=== PATIENT | female | born 1975 | race Caucasian/White ===

== ENCOUNTER 2018-04-20 05:30 | Inpatient (IN) | payer BC ==
[~2018-04-20] VITALS: Ht 165.1 cm; Wt 98.4 kg
[2018-04-20] MEDS ORDERED: IRON1TAB95 PO (06:39)
[2018-04-20] MEDS ORDERED: ONDANSETRON HCL 4 MG/2 ML VIAL IVP PRN ×2 (08:15→11:30)
[2018-04-20] MEDS ORDERED: fentaNYL CITRATE/PF 100 MCG/2 ML AMP IVP PRN ×2 (08:15)
[2018-04-20] MEDS ORDERED: KETOROLAC TROMETHAMINE 30 MG VIAL IVP PRN ×2 (08:15→10:30)
[2018-04-20] MEDS ORDERED: TEMAZEPAM 15 MG CAPSULE PO PRN (10:30)
[2018-04-20] MEDS ORDERED: BISACODYL 10 MG/SUPPOSITORY RC PRN (10:30)
[2018-04-20] MEDS ORDERED: CEFAZOLIN 2 GM IVPB PREMIX 50 ML IV ONE (10:40)
[2018-04-20] MEDS ORDERED: MIDAZOLAM HCL 5 MG/5 ML VIAL IVP ONE (10:40)
[2018-04-20] MEDS ORDERED: KETOROLAC TROMETHAMINE 30 MG VIAL IVP ONE (10:40)
[2018-04-20] MEDS ORDERED: BUPIVACAINE /PF 0.25% 30 ML VIAL INJ ONE (10:40)
[2018-04-20] MEDS ORDERED: ONDANSETRON HCL 4 MG/2 ML VIAL IVP ONE (10:40)
[2018-04-20] MEDS ORDERED: NS 1000 ML IV.SOLN IV ONE (10:40)
[2018-04-20] MEDS ORDERED: LIDOCAINE 2%, 20 ML MDV INJ ONE (10:40)
[2018-04-20] MEDS ORDERED: BUPIVACAINE /PF 0.5% 30 ML VIAL INJ ONE (10:40)
[2018-04-20] MEDS ORDERED: PROPOFOL 200MG/ 20ML VIAL (DIPRIVAN) IV ONE (10:40)
[2018-04-20] MEDS ORDERED: ROCURONIUM BROMIDE 10 MG/ML (ZEMURON) IV ONE (10:40)
[2018-04-20] MEDS ORDERED: ROPIVACAINE 0.2% (NAROPIN) PF SOLUTION 100 ML BOTTLE EP ONE (10:40)
[2018-04-20] MEDS ORDERED: SEVOFLURANE 15 MIN GAS INH ONE (10:40)
[2018-04-20] MEDS ORDERED: fentaNYL CITRATE 250 MCG/5 ML AMP IV ONE (10:40)
[2018-04-20] MEDS ORDERED: LR 1,000 ML IV.SOLN IV ONE (10:40)
[2018-04-20] MEDS ORDERED: fentaNYL CITRATE/PF 100 MCG/2 ML AMP ONE (10:54)
[2018-04-20] MEDS ORDERED: ONDANSETRON HCL 4 MG/2 ML VIAL ONE (10:54)
[2018-04-20] MEDS ORDERED: SENNOSIDES/DOCUSATE SODIUM 1 TAB TABLET(SENOKOT-S) PO PRN (11:15)
[2018-04-20] MEDS ORDERED: DOCUSATE SODIUM 100 MG CAPSULE PO PRN (11:15)
[2018-04-20] MEDS ORDERED: PROMETHAZINE HCL 25 MG/ML AMP ONE (11:40)
[2018-04-20] MEDS ORDERED: PROMETHAZINE HCL 25 MG/ML AMP IM ONE (11:45)
--- NOTE | 2018-04-20 11:45 | NUR ---
initial notes rec patient from rr s.p ela asleep but arousable to stimuli with hob elevated.ivf infusing well on the l wrist. no infiltration noted. resp easy and unlabored. noted with lower abd dressing and no bleeding noted. kennedy cath intact and draining to mod amount of yellow urine. accompanied by family at bedside. oriented with the call light, communication board and the call light. will continue to mo itor patient.
[2018-04-20 12:28] VITALS: BP_SYST 148
[2018-04-20 13:46] VITALS: BP_SYST 148
--- NOTE | 2018-04-20 13:51 | NUR ---
rounds dr hooks was called for patient c/o pain and with order.
--- NOTE | 2018-04-20 14:00 | NUR ---
rounds pt continue to have pain and dr hooks was called and with order. family at bedside.
[2018-04-20] MEDS: MEPERIDINE HCL/PF 50 MG/ML AMP IVP PRN ×2 (14:15→17:55)
--- NOTE | 2018-04-20 17:00 | NUR ---
rounds pt is asleep at this time. hob slightly elevated, call light within reached.
[2018-04-20] MEDS: SIMETHICONE 80 MG TAB.CHEW PO PRN (17:47)
[2018-04-20 17:54] VITALS: BP_SYST 161
[2018-04-20] MEDS: LR 1,000 ML IV SCH ×2 (18:01→19:15)
--- NOTE | 2018-04-20 19:00 | NUR ---
closing notes report given to lithuanian re patient and dr acharya anesthesiologist at bedside. reported re elevated bp 157/95 at this time. he ordered iuss master analyst morphine and endorsed to lithuanian night nurse rn. with daughter at bedside. no sob noted. dressing dry and intact with ice pack in place. call light within reached and knows to call for assistance.
[2018-04-20] MEDS ORDERED: MORPHINE PCA 50 mg/50 mL NS 50 ML IV PRN (19:30)
--- NOTE | 2018-04-20 19:30 | NUR ---
Initial Notes Received patient resting in bed, awake, alert, oriented, family at bedside. Patient denies any acute distress. Vital signs stable. Breathing is even and unlabored. IV site patent/clean/dry. Sommer draining to gravity. Surgical dressing noted lower abdomen, clean/dry/intact. On-Q pump noted, catheter in place. Educated patient regarding use of call light for assistance and fall precautions, patient verbalized understanding. Call light in hand, fall precautions in place. Dr. Alonso in to see patient. On-Q pump setting changed by , now at 10. WAREHOUSE SHIFT SUPERVISOR orders received, will carry out once medication received.
[2018-04-20 20:00] VITALS: BP_SYST 157
[2018-04-20] MEDS: MORPHINE PCA 50 mg/50 mL NS 50 ML IV PRN (20:24)
--- NOTE | 2018-04-20 20:30 | NUR ---
HOSPITAL LIAISON Initiated HOSPITAL LIAISON orders initiated, verified and witnessed by Sima HUFF. Instructed patient regarding increase risk of falls and instructed patient to use call light for assistance, patient verbalized understanding. IV site patent/clean/dry, no S/S infection/infiltration noted. Abdominal binder applied per MD order, patient tolerating well. Ice pack applied to abdomen.
--- NOTE | 2018-04-20 22:00 | NUR ---
Nursing Notes Patient resting in bed with eyes closed, easily aroused, family at bedside. Patient denies any acute distress at this time. Breathing is even and unlabored. IV site patent/clean/dry. Sommer draining to gravity. Patient noted pain relieve with LUGGER. Needs addressed. Call light in hand, fall precautions in place.
[2018-04-21 00:36] VITALS: BP_SYST 154
--- NOTE | 2018-04-21 00:39 | NUR ---
Nursing Notes Patient resting in bed with eyes closed, family at bedside. No acute distress noted, breathing is even and unlabored. IV site patent/clean/dry. Sommer draining to gravity. Call light in hand, fall precautions in place. Will continue to monitor.
[2018-04-21] MEDS: LR 1,000 ML IV SCH ×2 (01:45→11:53)
--- NOTE | 2018-04-21 02:36 | NUR ---
Nursing Notes Patient resting in bed with eyes closed. No distress noted. Breathing is even and unlabored. IV site patent/clean/dry. Sommer draining to gravity. Will continue to monitor for changes and safety.
--- NOTE | 2018-04-21 04:30 | NUR ---
Nursing Notes Patient resting in bed with eyes closed, easily aroused, family. Patient denies any acute distress, pain, or needs at this time. IV site patent/clean/dry. Sommer draining to gravity. Call light in hand, fall precautions in place.
[2018-04-21] MEDS ORDERED: OXYCODONE/ACETAMINOPHEN 5-325 TABLET PO PRN (06:00)
[2018-04-21] MEDS: IBUPROFEN 600 MG TABLET PO SCH ×3 (06:04→19:01)
[2018-04-21 06:25] LABS: MONOCYTES # (AUTO) 0.8 K/uL (0.0-1.0); WHITE BLOOD COUNT (AUTO) 9.4 K/uL (4.8-10.8)
--- NOTE | 2018-04-21 06:40 | NUR ---
Closing Notes Patient resting in bed with eyes closed, easily aroused, family at bedside. Patient denies any acute distress at this time when asked. Breathing is even and unlabored. IV site patent/clean/dry, no S/S infection/infiltration noted. CAR DELIVERER infusing per MD orders. Dressing remains clean/dry/intact. Abdominal binder in use, patient tolerating well. Sommer discontinued @ 0600 per MD orders, instructed patient to call for assistance for toileting needs, and to notify staff if patient is unable to void, patient verbalized understanding. Patient able to sit up on edge of bed and dangle feet at this time, assisted patient back to bed without incident. Needs addressed throughout shift. Call light in hand, fall precautions in place. Will continue to monitor for changes and safety, and endorse all patient care/needs to oncoming nurse.
[2018-04-21 07:08] LABS: EOSINOPHILS % (AUTO) 0.4 % (0.0-4.0); HEMOGLOBIN 9.2 g/dL (12.0-16.0); PLATELET COUNT (AUTO) 210 K/uL (130-430); RED CELL DISTRIBUTION WIDTH 22.1 % (9.0-15.0)
[2018-04-21 07:17] LABS: BASOPHILS % (AUTO) 0.4 % (0.0-2.0); HEMATOCRIT 28.8 % (36-48); LYMPHOCYTES # (AUTO) 1.9 K/uL (1.0-5.5); LYMPHOCYTES % (AUTO) 19.8 % (20.5-51.5); MEAN CORPUSCULAR HEMOGLOBIN 26 pg (27-31); MEAN CORPUSCULAR HGB CONC 32 % (32-36); MEAN CORPUSCULAR VOLUME 80 fL (79.0-98.0); NEUTROPHILS # (AUTO) 6.7 K/uL (1.8-7.7); NEUTROPHILS % (AUTO) 71.4 % (40.0-70.0); RED BLOOD CELL COUNT(AUTO) 3.59 MIL/uL (4.2-6.2)
--- NOTE | 2018-04-21 07:30 | NUR ---
opening note pt awake alert. denies any chest pain/ shortness of breath. call light placed within reach. bed alarm in place with bed in the lowest position. pt on employment office clerk and q pump at this time. ivf infusing at 125 ml/hr on left wrist 18 g noted. will monitor
[2018-04-21 08:00] VITALS: BP_SYST 120
--- NOTE | 2018-04-21 09:37 | NUR ---
rounds pt asleep but easily arousable. no distress noted. call light within reach. safety maintained
--- NOTE | 2018-04-21 10:32 | NUR ---
rounds patient ambulated to restroom- good urine output. pt stated he pain is a 3/10 and tolerable. abd dressing dry and intact. daughter at bedside. pt made comfortable in chair to eat breakfast at this time, call light placed within reach. pt aware that lunch will arrive within an hour. safety maintained.
--- NOTE | 2018-04-21 10:48 | NUR ---
Nutrition Update Jian Scale 18 noted. Pt admitted for hypertrophy of uterus. Diet: regular BMI: 36.1 kg/m2 RD to follow per nutrition care standards.
--- NOTE | 2018-04-21 11:58 | NUR ---
med pass new ivf of LR hung at this time. scheduled motrin po given as well. pt still sitting up in chair at bedside. safety maintained.
[2018-04-21 12:13] VITALS: BP_SYST 125
--- NOTE | 2018-04-21 13:21 | NUR ---
IVF STOPPED PER DR FORD ORDERS- PT TOLERATED LUNCH WELL NO NAUSEA NO VOMITING. ,PT AMBULATING IN HALLWAY AT THIS TIME
--- NOTE | 2018-04-21 15:30 | NUR ---
ROUNDS PT LAYING IN BED WITH FAMILY AT BEDSIDE. NO DISTRESS NOTED. SAFETY MAINTAINED
[2018-04-21 16:05] VITALS: BP_SYST 118
--- NOTE | 2018-04-21 19:01 | NUR ---
med pass ibuprofen given at this time safety maintained
--- NOTE | 2018-04-21 19:15 | NUR ---
CHANGE OF SHIFT: pt. up walking inside the room, S/P JOSE M, post op day 1. IV infusing and GLOVE CUTTER Morphine. call light within reach.
--- NOTE | 2018-04-21 19:45 | NUR ---
closing note all needs met through shift, safety maintained. care endorsed to cnc machinist 2nd shift.
[2018-04-21 20:00] VITALS: BP_SYST 119
--- NOTE | 2018-04-21 21:30 | NUR ---
NOTES: CENTRIFUGAL WAX MOLDER Morphine syringe empty, checked Pyxis, no medication, requested and order to production welding supervisor, called pharmacist since no CENTRIFUGAL WAX MOLDER Morphine on night locker, pt. informed.
[2018-04-21] MEDS: MORPHINE PCA 50 mg/50 mL NS 50 ML IV PRN (22:50)
--- NOTE | 2018-04-21 22:52 | NUR ---
NOTES: changed TOOL PROCUREMENT COORDINATOR Morphine syringe with nurse Faustino, reset volume since 22.77 cc. left but it was empty already. pt. ambulated to the restroom. N Q pump in place with abdominal binder. Addendum: 04/22/18 at 0206 by Emily Tubbs RN Pharmacist came to prepare TOOL PROCUREMENT COORDINATOR Morphine
[2018-04-22] MEDS: IBUPROFEN 600 MG TABLET PO SCH ×4 (00:09→13:27)
--- NOTE | 2018-04-22 00:23 | NUR ---
NOTES: O2 sat drops to 89%, instructed on deep breathing and use of IS, done x10, O2 sat still low 86%, placed on O2 @ 2l/nc. for further observation.
[2018-04-22 00:40] VITALS: BP_SYST 119
[2018-04-22] MEDS: SIMETHICONE 80 MG TAB.CHEW PO PRN ×2 (01:38→09:18)
--- NOTE | 2018-04-22 01:46 | NUR ---
NOTES: pt. awakened c/o abdominal pain, feels a lot of gas, Mylicon given as ordered. reapplied abdominal binder. repositioned self for comfort.
--- NOTE | 2018-04-22 04:07 | NUR ---
NOTES: pt. sleeping, at bedside. condition observed. continuous O2 sat with pulse oximeter.
--- NOTE | 2018-04-22 06:35 | NUR ---
CLOSING NOTES; WEATHERCASTER Morphine continuous with IV LR @ 30cc/hr. O2 @ 2l/nc. abdominal binder on, steri strips on incision with N Q pump and cath intact. pt. ambulates to restroom at intervals. pt. needs attended. for further assist. call light within reach.
--- NOTE | 2018-04-22 07:15 | NUR ---
endorsed pt. to incoming shift with nurse Belrtan.
--- NOTE | 2018-04-22 07:27 | NUR ---
opening note pt was asleep, but easily aroused. pt stated her pain level is tolerable. pt on 2 liters nasal canula now. bed alarm visibly within reach. pt refusing bed alarm-encouraged to call for help. safety maintained.
[2018-04-22 08:00] VITALS: BP_SYST 137
--- NOTE | 2018-04-22 09:20 | NUR ---
med pass mylicon given fo gas. pt also given colace. safety maintained, no distress noted.
--- NOTE | 2018-04-22 10:55 | NUR ---
Vera Zelaya MD, Dr. (anesthesiologist). phone number: [phone].
[2018-04-22 12:00] VITALS: BP_SYST 141
--- NOTE | 2018-04-22 13:27 | NUR ---
med pass po motrin given at this time. given late- patient refused medication initially, but requested it later on
[2018-04-22 13:44] VITALS: BP_SYST 141
--- NOTE | 2018-04-22 16:30 | NUR ---
D/C Patient Patient given medication reconciliation form and D/C instructions. Exit Care provided. Patient verbalized understanding. MD discussed with patient the results and treatment provided. Ambulatory with steady gait for discharge to home. Patient in stable condition, ID band removed. IV catheter removed, intact and dressing applied, no active bleeding. Rx of Percocet given. Patient educated on pain management. All belongings sent with patient.
== END 2018-04-22 16:30 | disposition home or self-care (01) | DRG 743 ==
LOC: SMU 05:30 → STU 20:35
PROVIDERS: ADMIT Obstetrics & Gynecology; ATTEND Obstetrics & Gynecology
PROC: 0UT50ZZ Resection of Right Fallopian Tube, Open Approach (ICD-10-PCS; 2018-04-20)
PROC: 0UT90ZZ Resection of Uterus, Open Approach (ICD-10-PCS; principal; 2018-04-20 07:30)
DX: D25.9 Leiomyoma of uterus, unspecified (principal); D64.9 Anemia, unspecified; N93.9 Abnormal uterine and vaginal bleeding, unspecified; E66.9 Obesity, unspecified; Z83.3 Family history of diabetes mellitus; Z98.891 History of uterine scar from previous surgery; Z79.899 Other long term (current) drug therapy; Z90.49 Acquired absence of other specified parts of digestive tract; Z88.2 Allergy status to sulfonamides; Z68.36 Body mass index [BMI] 36.0-36.9, adult
CPT/HCPCS: 36415; 85025; 86870; 86886; 86900; 86901; 87081; 88307; J0690; J1885; J2001; J2175; J2250; J2270; J2405; J2550; J2704; J2795; J3010; J3490; J7030; J7050; J7120